=== PATIENT | male | born 1995 | race Caucasian/White ===

== ENCOUNTER 2018-02-04 09:11 | Emergency (ER) | payer OTHER ==
--- NOTE | 2018-02-04 10:03 | RAD ---
HISTORY: Rt hand injury, swelling pain COMPARISONS: None VIEWS: 4, Frontal, lateral, and oblique views of the right hand FINDINGS: BONE DENSITY: Normal. BONES: There is an oblique comminuted fracture of the proximal fifth metacarpal. There is minimal volar angulation. JOINTS: There is no arthropathy. ALIGNMENT: There is no dislocation. SOFT TISSUES: Unremarkable. OTHER FINDINGS: None. IMPRESSION: OBLIQUE, COMMINUTED FRACTURE OF THE PROXIMAL FIFTH METACARPAL.
[2018-02-04] MEDS ORDERED: Tetan/Diph/Pertus SYR(Tdap)* 0.5 ML SYR(BOOSTRIX) use SYR IM ONE (10:09)
[2018-02-04] MEDS ORDERED: Ibuprofen TAB* 800 MG PO ONE (10:09)
--- NOTE | 2018-02-04 10:14 | ED ---
Upper Extremity Pain - HPI Summary HPI Summary: [id number] patient here with right hand injury since last night. He reports he had 9 beers and after getting upset, punched a wall. His hand went through the wall and he has an abrasion on his hand and forearm. He also has swelling of the lateral aspect of his hand with bruising and pain with movement of his fingers at the knuckles. He has some focal tingling about his knuckles otherwise has full sensation in fingers and remainder of extremity. He's not tried anything for pain prior to arrival. He is unsure of his last tetanus vaccine. No previous injuries to this hand to report. - History of Current Complaint Chief Complaint: EDExtremityUpper Stated Complaint: RT HAND INJURY Time Seen by Provider: 02/04/18 09:18 Hx Obtained From: Patient, Family/Radioisotope Technician - mom - Allergies/Home Medications Allergies/Adverse Reactions: Allergies Allergy/AdvReac Type Severity Reaction Status Date / Time amoxicillin Allergy Intermediate Rash Verified 02/04/18 09:16 PMH/Surg Hx/FS Hx/Imm Hx Previously Healthy: Yes Endocrine/Hematology History: Denies: Hx Anticoagulant Therapy, Hx Blood Disorders Respiratory History: Reports: Hx Asthma - well controlled - Immunization History Immunizations Up to Date: Unable to Obtain/Confirm Infectious Disease History: No Infectious Disease History: Denies: Traveled Outside the [place] in Last 30 Days - Family History Known Family History: Positive: None - Social History 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 Negative: Weakness, Numbness Psychological: Normal All Other Systems Reviewed And Are Negative: Yes Physical Exam Triage Information Reviewed: Yes Vital Signs On Initial Exam: Initial Vitals Temp Pulse Resp BP Pulse Ox 98.4 F 95 14 130/84 99 02/04/18 09:13 02/04/18 09:13 02/04/18 09:13 02/04/18 09:13 02/04/18 09:13 Vital Signs Reviewed: Yes Appearance: Positive: Well-Appearing, Well-Nourished, Pain Distress - mild Skin: Positive: Warm, Skin Color Reflects Adequate Perfusion, Dry - abrasion over Rt lateral hand - no open wound and no signs of deep scabbing Head/Face: Positive: Normal Head/Face Inspection ENT: Positive: Hearing grossly normal Respiratory/Lung Sounds: Positive: Breath Sounds Present Cardiovascular: Positive: Pulses are Symmetrical in both Upper and Lower Extremities Musculoskeletal: Positive: Strength/ROM Intact, Pain @ - movement of RT 4th/5th fingers at MCP joint - otherwise, no pain w/ gripping/movement Neurological: Positive: Normal, Sensory/Motor Intact, Alert, Oriented to Person Place, Time Psychiatric: Positive: Normal Procedures - Splinting Right Upper Extremity Hand-Made Type: fiberglass Splint: ulnar - gutter Pre-Proc Neuro Vasc Exam: normal Post-Proc Neuro Vasc Exam: normal Diagnostics - Vital Signs Vital Signs Temp Pulse Resp BP Pulse Ox 02/04/18 09:13 98.4 F 95 14 130/84 99 - Laboratory Lab Statement: Any lab studies that have been ordered have been reviewed, and results considered in the medical decision making process. Course/Dx - Course Course Of Treatment: Soaked hand in hibaclens solution - wound continued to remain closed and appears superficial in nature - discussed w/ Zenia Richmond - will provide brief course of keflex anbx at this time for prophylaxis. SPlint placed and education provided. Pt will f/u w/ hand specialist as directed. - Diagnoses Provider Diagnoses: Fracture of fifth metacarpal bone of right hand, Abrasion hand Discharge - Sign-Out/Discharge Documenting (check all that apply): Patient Departure - Discharge Plan Condition: Stable Disposition: HOME Prescriptions: Cephalexin CAP* [Keflex CAP*] 500 mg PO BID #10 cap Patient Education Materials: Hand Fracture (ED), Splint Care (ED) Referrals: Negrita Richmond MD [Medical Doctor] - Additional Instructions: REST, ICE, ELEVATE AND KEEP SPLINT CLEAN, DRY AND IN PLACE UNTIL SEEN BY ORTHOPEDICS. Call orthopedics today to schedule follow-up You may take ibuprofen 600MG EVERY 6 HOURS alternating with acetaminophen 650MG EVERY 6 HOURS as needed for pain *If you develop numbness, tingling, weakness, swelling or skin discoloration, loosen MATT wrap and elevate arm for 20 minutes. If symptoms persist, return to ED - Billing Disposition and Condition Condition: STABLE Disposition: Home
[2018-02-04 11:10] VITALS: BP 132/84
== END 2018-02-04 11:09 | disposition home or self-care (01) ==
LOC: ED 09:11
DX: S62.396A Other fracture of fifth metacarpal bone, right hand, initial encounter for closed fracture (principal); S60.511A Abrasion of right hand, initial encounter; W22.09XA Striking against other stationary object, initial encounter; Y93.9 Activity, unspecified; Y92.9 Unspecified place or not applicable; Z23 Encounter for immunization; Z88.0 Allergy status to penicillin
CPT/HCPCS: 90471; 90715; 99282; A9270-GY